=== PATIENT | female | born 1980 | race Caucasian/White ===

== ENCOUNTER → 2020-12-25 | Outpatient (CLI) | payer BC ==
[~2020-12-25] MED LIST: IBUPROFEN600 MG PO; XYZAL5 MG PO
== END ==
LOC: KOH-I 09:28
DX: S82.892A Other fracture of left lower leg, initial encounter for closed fracture (principal); X58.XXXA Exposure to other specified factors, initial encounter
CPT/HCPCS: 73700

== ENCOUNTER → 2021-02-20 | Outpatient (CLI) | payer BC | LOC: OPSV2 12:28 | DX: Z01.812 Encounter for preprocedural laboratory examination (principal); S92.15 Avulsion fracture (chip fracture) of talus; X58.XXXD Exposure to other specified factors, subsequent encounter | CPT/HCPCS: 84703 ==

== ENCOUNTER → 2021-02-21 | Day surgery (SDC) | payer BC ==
[~2021-02-21] VITALS: Ht 167.6 cm; Wt 74.4 kg
== END | disposition home or self-care (01) ==
LOC: OR 07:08
PROVIDERS: Podiatrist Foot & Ankle Surgery
PROC: 3E013GC Introduction of Other Therapeutic Substance into Subcutaneous Tissue, Percutaneous Approach (ICD-10-PCS; 2021-02-21)
PROC: 0SBG4ZZ Excision of Left Ankle Joint, Percutaneous Endoscopic Approach (ICD-10-PCS; principal; 2021-02-21 10:20)
DX: M25.872 Other specified joint disorders, left ankle and foot (principal); M76.62 Achilles tendinitis, left leg; Z20.822 Contact with and (suspected) exposure to COVID-19; Z88.1 Allergy status to other antibiotic agents; Z88.8 Allergy status to other drugs, medicaments and biological substances; Z79.899 Other long term (current) drug therapy
CPT/HCPCS: 73600; 73610; 76000; C1713; J0171; J2001; J2250; J2405; J2704; J2710; J2795; J3010; J3370; J7120